=== PATIENT | female | born 1945 | race Caucasian/White ===

== ENCOUNTER → 2016-10-14 | Outpatient (CLI) | payer MEDICARE | LOC: WI 10:33 | PROVIDERS: ATTEND Nurse Practitioner Family | DX: Z12.31 Encounter for screening mammogram for malignant neoplasm of breast (principal) | CPT/HCPCS: 77063; G0202; 77067 ==

== ENCOUNTER → 2017-12-01 | Outpatient (CLI) | payer MEDICARE ==
--- NOTE | 2017-12-01 09:38 | WOMENS IMAGING REPORT ---
EXAM DESCRIPTION: BONE DENSITY HIP/SPINE COMPLETED DATE/TIME: 12/01/2017 9:11 am REASON FOR STUDY: POSTMENOPAUSAL DISORDER N95.9 UNSPECIFIED MENOPAUSAL AND PERIMENOPAUSAL DISORDER Z12.31 ENCNTR SCREEN MAMMOGRAM FOR MALIGNANT NEOPLASM OF ASHLEY COMPARISON: None. TECHNIQUE: Dual-Energy X-ray Absorptiometry (DEXA) of the AP Spine and Hip. LIMITATIONS: None. FINDINGS: LUMBAR SPINE: The bone mineral density (BMD) measured from L1-L4 in the AP projection correlates with a T-score of -1.5, which is osteopenia as defined by the World Health Organization. HIP: The bone mineral density (BMD) measured in the left hip correlates with a T-score of -1.6, which is o steopenia as defined by the World Health Organization. IMPRESSION: 1. LUMBAR SPINE: OSTEOPENIA. 2. HIP: OSTEOPENIA. COMMENT: The World Health Organization defines low BMD as follows: T-score: Normal: Greater than -1.0 Osteopenia: Between -1.0 and -2.5 Osteoporosis: Less than -2.5 without fractures Established osteoporosis: Less than -2.5 with fractures In general, you may wish to consider: Diagnosis Treatment Follow-up DEXA Normal BMD Prevention 2-3 years Osteopenia Prevention/Therapy 1-2 years Osteoporosis Therapy Yearly TECHNICAL DOCUMENTATION: JOB ID: [id number] [email or web address]- All Rights Reserved Reading location - IP/workstation name: [facility]
--- NOTE | 2017-12-01 09:47 | WOMENS IMAGING REPORT ---
EXAM DESCRIPTION: 3D SCREENING MAMMO BILAT COMPLETED DATE/TIME: 12/01/2017 9:11 am REASON FOR STUDY: SCREENING MAMMO N95.9 UNSPECIFIED MENOPAUSAL AND PERIMENOPAUSAL DISORDER Z12.31 ENCNTR SCREEN MAMMOGRAM FOR MALIGNANT NEOPLASM OF ASHLEY COMPARISON: 10/14/2016 and 08/13/2015. TECHNIQUE: Standard craniocaudal and mediolateral oblique views of each breast recorded using digita l acquisition and breast tomosynthesis. LIMITATIONS: None. FINDINGS: Findings present which are benign by mammographic criteria. No suspicious masses, calcifi cations or architectural distortion. Pertinent benign findings: Stable calcifications. Read with the assistance of CAD. .[facility] - R2 Cenova Version 1.3 .[facility] Imaging - R2 Cenova Version 1.3 .[facility] Imaging - R2 Cenova Version 2.4 .[facility] [place] R2 Cenova Version 2.4 .[facility] - R2 Glue Clamp Operator Version 9.2 Benign mammographic findings may include one or more of the following: Smooth masses, popcorn/rim/co arse calcifications, asymmetries, post-procedure changes, and lesions with long-standing stability. IMPRESSION: BENIGN MAMMOGRAPHIC FINDINGS. BIRADS 2 BREAST DENSITY: b. There are scattered areas of fibroglandular density. BIRAD: 2 BENIGN FINDING(S) RECOMMENDATION: RECOMMENDATION: ROUTINE SCREENING COMMENT: The patient has been notified of the results by letter per SA requirements. Additional no tification policies are in place for contacting patient with suspicious or incomplete findings. Quality ID #225: The [employer] recommends an annual screening mammogram for women aged 40 years or over. This facility utilizes a reminder system to ensure that all patients receive reminder letters, and/or direct phone calls for appointments. This includes reminders for routine scr eening mammograms, diagnostic mammograms, or other Breast Imaging Interventions when appropriate. Th is patient will be placed in the appropriate reminder system. The [employer] (ACR) has developed recommendations for screening MRI of the breast s in certain patient populations, to be used in conjunction with mammography. Breast MRI surveillanc e may be appropriate for women with more than 20% lifetime risk of developing breast cancer as deter mined by genetic testing, significant family history of the disease, or history of mantle radiation f or Hodgkins Disease. ACR Practice Guidelines 2008. DBT Technology DBT is a type of tomographic mammography. With conventional mammography, overlapping breast tissue ma y make lesions difficult to detect, even with good compression. DBT uses an x-ray tube that rotates a round the breast, taking images at different angles. These images are then combined to create thin sl ices of the breast that the radiologist can view as a 3D reconstruction. The Wintegra unit can perform full-field digital mammograms (2D imaging); or DBT (3D imaging); or both, in a combination mode that quickly performs both the mammogram and the tomosynthesis scan while the breast is still compressed. PQRS 6045F: Fluoroscopic imaging is not utilized for breast tomosynthesis. TECHNICAL DOCUMENTATION: FINDING NUMBER: (1) ASSESSMENT: (1) JOB ID: [id number] [employer]- All Rights Reserved Reading location - IP/workstation name: [facility][email or web address]
== END ==
LOC: WI 08:32
PROVIDERS: ATTEND Nurse Practitioner Family
DX: Z12.31 Encounter for screening mammogram for malignant neoplasm of breast (principal); N95.9 Unspecified menopausal and perimenopausal disorder; M85.88 Other specified disorders of bone density and structure, other site
CPT/HCPCS: 77063; 77067; 77080

== ENCOUNTER → 2019-04-27 | Outpatient (CLI) | payer MEDICARE ==
--- NOTE | 2019-04-27 16:25 | WOMENS IMAGING REPORT ---
EXAM DESCRIPTION: 3D SCREENING MAMMO BILAT COMPLETED DATE/TIME: 04/27/2019 11:17 am REASON FOR STUDY: Z12.31 ENCOUNTER FOR SCREENING MAMMOGRAM FOR MALIGNANT NEOPLASM OF BREAST Z12.31 ENCNTR SCREEN MAMMOGRAM FOR MALIGNANT NEOPLASM OF ASHLEY COMPARISON: Multiple since 2013 EXAM PARAMETERS: Standard craniocaudal and mediolateral oblique views of each breast recorded using digital acquisition and breast tomosynthesis. Read with the assistance of CAD. .[facility] [place] [employer] Spot [employer]der Version 9.2 LIMITATIONS: None. FINDINGS: Findings present which are benign by mammographic criteria. No suspicious masses, calcific ations or architectural distortion. Pertinent benign findings: Stable benign bilateral breast calcifications. Prior biopsy clip in the 6 o'clock position right breast Benign mammographic findings may include one or more of the following: Smooth masses, popcorn/rim/coa rse calcifications, asymmetries, post-procedure changes, and lesions with long-standing stability. IMPRESSION: BENIGN MAMMOGRAPHIC FINDINGS. BIRADS 2 BREAST DENSITY: b. There are scattered areas of fibroglandular density. BIRAD: ASSESSMENT: 2 BENIGN FINDING(S) RECOMMENDATION: ROUTINE SCREENING COMMENT: The patient has been notified of the results by letter per MQSA requirements. Additional no tification policies are in place for contacting patient with suspicious or incomplete findings. Quality ID #225: The [employer] recommends an annual screening mammogram for women aged 40 years or over. This facility utilizes a reminder system to ensure that all patients receive reminder letters, and/or direct phone calls for appointments. This includes reminders for routine scr eening mammograms, diagnostic mammograms, or other Breast Imaging Interventions when appropriate. Th is patient will be placed in the appropriate reminder system. TECHNICAL DOCUMENTATION: FINDING NUMBER: (1) ASSESSMENT: (1) JOB ID: [id number] [email or web address]- All Rights Reserved Reading location - IP/workstation name: [facility]
== END ==
LOC: WI 10:44
PROVIDERS: ATTEND Nurse Practitioner Family
DX: Z12.31 Encounter for screening mammogram for malignant neoplasm of breast (principal)
CPT/HCPCS: 77063; 77067

== ENCOUNTER 2019-07-17 21:15 | Emergency (ER) | payer MEDICARE ==
[2019-07-17] MEDS ORDERED: OXYCODONE-ACETAMINOPHEN 5-325 MG TABLET PO ONE ×2 (21:18→22:26)
--- NOTE | 2019-07-17 21:23 | ER Document Report ---
ED Medical Screen (RME) - General Chief Complaint: Wrist Injury Stated Complaint: FALL WRIST PAIN Time Seen by Provider: 07/17/19 21:16 Primary Care Provider: HELGA LEWIS FNP-C [Primary Care Provider] - Follow up as needed Mode of Arrival: Wheelchair Information source: Patient Notes: 33-year-old female presents to ED for complaint of fall at the congregational about 830 tonight. She does have a bruise to the right forehead and she does have a clotting disorder. She also has a deformity to the right wrist and hand. X- rays have been ordered I have a Percocet has been ordered as she states she cannot take a whole Percocet. CT of the head has been ordered for the head injury. Patient is alert and oriented respirations regular nonlabored very tearful. Iron may TRAVEL OUTSIDE OF THE [place] IN LAST 30 DAYS: No - Related Data Allergies/Adverse Reactions: aspirin [Aspirin] Allergy (Verified 04/24/14 21:32) Lactase [From Dairy Ease] Allergy (Verified 04/24/14 21:32) Penicillins Allergy (Verified 04/24/14 21:32) Sulfa (Sulfonamide Antibiotics) Allergy (Verified 04/24/14 21:32) Past Medical History - Past Medical History Cardiac Medical History: Reports: Hx Hypercholesterolemia, Hx Hypertension Malignancy Medical History: Reports: Hx Ovarian Cancer Musculoskeltal Medical History: Reports Hx Arthritis Past Surgical History: Reports: Hx Hysterectomy, Hx Orthopedic Surgery - Right total knee, right foot ORIF - Immunizations Hx Diphtheria, Pertussis, Tetanus Vaccination: Yes Doctor's Discharge - Discharge Referrals: HELGA LEWIS FNP-C [Primary Care Provider] - Follow up as needed
--- NOTE | 2019-07-17 22:13 | RADIOLOGY REPORT (SQ) ---
EXAM DESCRIPTION: CT HEAD WITHOUT INTRAVENOUS CONTRAST CLINICAL HISTORY: Head injury. History of clotting disorder. COMPARISON: None TECHNIQUE: CT of the head was performed without intravenous contrast .This exam was performed according to our departmental dose-optimization program, which includes automated exposure control, adjustment of the mA and/or KV according to the patient's size and/or use of iterative reconstruction technique. FINDINGS: Normal size ventricles. No suspicious intra-axial or extra-axial abnormalities. Bony calvarium is unremarkable. Right ethmoid sinus disease. Partial sclerosis left mastoid air cells. Sella turcica mildly enlarged. Pituitary gland minimally enlarged for age. There is also increased CSF in the pituitary fossa. IMPRESSION: 1. There are no acute intracranial findings. 2. Right ethmoid sinus disease. 3. Mildly enlarged sella turcica with mildly enlarged for age pituitary gland.
--- NOTE | 2019-07-17 22:19 | RADIOLOGY REPORT (SQ) ---
EXAM DESCRIPTION: XR HAND 3 OR MORE VIEWS COMPLETED DATE/TME: 07/17/2019 21:17 CLINICAL HISTORY: 73 years, Female, fall deformity COMPARISON: None. NUMBER OF VIEWS: 3 TECHNIQUE: 3 views right hand LIMITATIONS: None. FINDINGS: Osteopenia. Degenerative changes throughout the hand and wrist. Comminuted, displaced intra-articular fracture deformity of the distal radial metaphysis. Displaced ulnar styloid fracture as well. IMPRESSION: Fracture deformities of the wrist. Osteopenia. Degenerative change copyright 2010 [employer]- All Rights Reserved
--- NOTE | 2019-07-17 22:21 | RADIOLOGY REPORT (SQ) ---
EXAM DESCRIPTION: Right wrist, three views series CLINICAL HISTORY: 73 years Female, fall deformity COMPARISON: None. FINDINGS: Significant distal radial fracture with dorsal angulation and impaction. Articular surface appears to be involved. There is a separate displaced large ulnar styloid fracture. Incidental advanced degenerative changes in the first and second carpometacarpal joints. IMPRESSION: Significant fractures of the distal radius and ulna. Degenerative changes in the radial aspect of the wrist.
--- NOTE | 2019-07-17 23:36 | ER Document Report ---
ED General - General Chief Complaint: Fall Injury Stated Complaint: FALL WRIST PAIN Time Seen by Provider: 07/17/19 21:16 Primary Care Provider: HELGA LEWIS FNP-C [Primary Care Provider] - Follow up as needed Mode of Arrival: Wheelchair TRAVEL OUTSIDE OF THE [place] IN LAST 30 DAYS: No - HPI Notes: Patient is a 73-year-old female presents emergency department for evaluation after a fall. She lost her balance, tripped, suffered a mechanical fall on her outstretched right hand. She is right-hand dominant. She did strike the right side of her head as well. No loss of consciousness. No neck or back pain. She complains of pain in the right wrist region. Patient does have an unknown blood clotting disorder. Family states it is "chcf like von Willebrand's" and she has significant problems forming clots. - Related Data Allergies/Adverse Reactions: aspirin [Aspirin] Allergy (Verified 04/24/14 21:32) Lactase [From Dairy Ease] Allergy (Verified 04/24/14 21:32) Penicillins Allergy (Verified 04/24/14 21:32) Sulfa (Sulfonamide Antibiotics) Allergy (Verified 04/24/14 21:32) Home Medications: Amlodipine 2-1/2 mg daily, bupropion 75 mg daily, BuSpar 7/2 mg as needed, Caltrate 601 tablet daily, multivitamin daily, Celexa 20 mill grams daily, hydroxychloroquine 400 mg at bedtime, lisinopril 40 mg daily, 75 mg of melatonin at bedtime, ropinirole 0.5 mg twice daily, simvastatin 20 mg daily, trazodone 50 mg daily Past Medical History - General Information source: Patient, Relative - Social History Smoking Status: Never Smoker Chew tobacco use (# tins/day): No Frequency of alcohol use: None Drug Abuse: None Family History: Reviewed & Not Pertinent Patient has suicidal ideation: No Patient has homicidal ideation: No - Medical History Medical History: Other - Blood clotting disorder, followed at [facility] - Past Medical History Cardiac Medical History: Reports: Hx Hypercholesterolemia, Hx Hypertension Malignancy Medical History: Reports: Hx Ovarian Cancer Musculoskeletal Medical History: Reports Hx Arthritis - Rheumatoid Past Surgical History: Reports: Hx Hysterectomy, Hx Orthopedic Surgery - Right total knee, right foot ORIF - Immunizations Hx Diphtheria, Pertussis, Tetanus Vaccination: Yes Review of Systems - Review of Systems Constitutional: No symptoms reported EENT: No symptoms reported Cardiovascular: No symptoms reported Respiratory: No symptoms reported Gastrointestinal: No symptoms reported Genitourinary: No symptoms reported Musculoskeletal: See HPI Skin: No symptoms reported Neurological/Psychological: No symptoms reported Physical Exam - Vital signs Vitals: Temp Pulse Resp BP Pulse Ox 97.7 F 70 22 H 150/86 H 97 07/17/19 21:27 07/17/19 21:27 07/17/19 21:27 07/17/19 21:27 07/17/19 21:27 - Notes Notes: Is a very pleasant 73-year-old female who appears stated age, no acute distress. Head is normocephalic. She does have a 2 cm hematoma to the lateral aspect of the right orbit without any signs of skin break or active bleeding. Pupils are equal round, reactive to light. Heart regular rate and rhythm, lungs are clear to station bilaterally. Examination of the right upper extremity yields a mild amount of edema without significant deformity noted to the right wrist. She has no bony tenderness to palpation about the shoulder, humerus, elbow. She is markedly tender to palpation to the entire wrist. She does have some pain and difficulty with moving the thumb. Full range of motion of the fourth fingers. Sensation is intact, capillary refill is brisk, radial pulse 2+. Patient is awake, alert, oriented x3. Cranial nerves II - XII are grossly intact without focal neurological deficits. Strength is plus 5 out of 5 bilateral lower extremities, left upper extremity. Sensation is intact. Reflexes symmetrical. Course - Re-evaluation Re-evalutation: 07/18/19 00:45 Patient presents emergency department for evaluation. She has a significant fracture of her distal radius, as well as an ulnar styloid fracture. She does have some mild displacement, but I am more concerned about the possibility of causing increased bleeding in this patient with a known bleeding disorder. My suspicion is that this will need to be handled operatively, but it any rate, I think it is most appropriate for this to be done by her orthopedist. The patient and her daughter completely agree, and are amenable to not attempting reduction at this time. Patient had improvement here with some Percocet. She has a few Percocet left at home. I will write her another prescription. She was placed in a sugar tong splint and sling. I went back and evaluated her. She was neurovascularly intact following. She already has an orthopedist in [place] for her to follow with. She is to return to the ED with worsening. - Vital Signs Vital signs: Temp Pulse Resp BP Pulse Ox 97.7 F 70 22 H 150/86 H 97 07/17/19 21:27 07/17/19 21:27 07/17/19 21:27 07/17/19 21:27 07/17/19 21:27 Procedures - Immobilization Right Distal Arm Pre-Proc Neuro Vasc Exam: Normal Immobilizer type: Sugar tong Performed by: PCT Post-Proc Neuro Vasc Exam: Normal Alignment checked and good: Yes Discharge - Discharge Clinical Impression: Closed head injury, Traumatic ecchymosis of face Right radial fracture Qualifiers: Encounter type: initial encounter Radius location: distal Fracture type: closed Fracture morphology: unspecified fracture morphology Qualified Code(s): S52.501A - Unspecified fracture of the lower end of right radius, initial encounter for closed fracture Fracture of right ulnar styloid Qualifiers: Encounter type: initial encounter Fracture type: closed Condition: Stable Disposition: HOME, SELF-CARE Instructions: Fractured Radius and Ulna ([facility]), Temporary Splint ([facility]), Head Injury Precautions ([facility]) Additional Instructions: Take Percocet as needed for pain as discussed. Maintain splint to keep fracture immobilized. Follow-up with your orthopedist, contact his office tomorrow to set up an appointment. If you develop increased pain, swelling, numbness, or any other new or concerning symptoms, please return immediately to the emergency department for evaluation. Referrals: HELGA LEWIS, [employer]-C [Primary Care Provider] - Follow up as needed
[2019-07-18 01:05] VITALS: BP 136/77
== END 2019-07-18 01:05 | disposition home or self-care (01) ==
LOC: ER 21:15
PROC: 2W3CX1Z Immobilization of Right Lower Arm using Splint (ICD-10-PCS; principal; 2019-07-17)
DX: S52.501A Unspecified fracture of the lower end of right radius, initial encounter for closed fracture (principal); S09.90XA Unspecified injury of head, initial encounter; S00.83XA Contusion of other part of head, initial encounter; M25.531 Pain in right wrist; W19.XXXA Unspecified fall, initial encounter; Z79.899 Other long term (current) drug therapy; I10 Essential (primary) hypertension
CPT/HCPCS: 99284; 73130; 73110; 70450; 29125; A9270

== ENCOUNTER 2020-04-02 06:28 | Day surgery (SDC) | payer MEDICARE ==
[~2020-04-02 06:28] MED LIST: KETOROLAC TROMETHAMINE 0.45% 4 DROP/0.4 ML DROPERETTE OD PRN
[2020-04-02] MEDS ORDERED: FENTANYL CITRATE INJ/PF 100 MCG/2 ML AMPUL ONE (06:58)
[2020-04-02] MEDS ORDERED: MIDAZOLAM 2 MG/2 ML INJ ONE (06:58)
[2020-04-02] MEDS ORDERED: ONDANSETRON HCL INJ/PF 4 MG/2 ML SDV ONE (06:58)
[2020-04-02] MEDS: CYCLOPENTOLATE 0.2%/PHENYLEPHRINE 1% OPH SOLN 2 ML OD PRN ×3 (07:04→07:14)
[2020-04-02] MEDS: TETRACAINE HCL 0.5% OPH SOLN 4 ML OD PRN ×3 (07:04→07:40)
[2020-04-02] MEDS: TROPICAMIDE 1% OPH SOLN 15 ML OD PRN ×3 (07:04→07:14)
[2020-04-02] MEDS: BESIFLOXACIN HCL 0.6% OPH SUSP 5 ML BOTTLE OD PRN ×4 (07:04→07:58)
[2020-04-02] MEDS: EPINEPHRINE INJ/PF 1 MG/1 ML AMPULE ONE ×2 (07:47→07:49)
[2020-04-02] MEDS: CHONDR SU A NA/HYALUR INTRAOC KIT (SURGICARE) ONE ×2 (07:47→07:49)
[2020-04-02] MEDS: LIDOCAINE 1%/PHENYLEPHRINE 1.5% 0.8 ML SYRINGE ONE ×2 (07:47→07:49)
[2020-04-02] MEDS: PREDNISOLONE ACETATE 1% OPH SUSP 5 ML OD PRN ×2 (07:58)
[2020-04-02] MEDS: DORZOLAMIDE HCL 2%/TIMOLOL MALEAT 0.5% OPH SOLN 10 ML OD PRN ×2 (07:58)
--- NOTE | 2020-04-02 10:35 | Operative Report ---
Operative Report-[facility] Operative Report: DATE OF SURGERY: April 02, 2020 PREOPERATIVE DIAGNOSIS: NUCLEAR CATARACT, RIGHT EYE. POSTOPERATIVE DIAGNOSIS: NUCLEAR CATARACT, RIGHT EYE. PROCEDURE PERFORMED: PHACOEMULSIFICATION WITH POSTERIOR CHAMBER INTRAOCULAR LENS IMPLANT, RIGHT EYE. SURGEON: Claudio Mack DO MEDICATIONS AND ANESTHESIA: Versed: IV Versed Tetracaine drops: 1 to 2 drops given as needed COMPLICATION: None INDICATIONS FOR SURGERY: Medical necessity: Best corrected visual acuity worse than 20/40 secondary to cataracts with impairment of ability to carry out needs or desired activities, blurred vision, visual distortion, reduced contrast sensitivity and/or glare with association functional impairment and supporting documentation/testing, and cataracts causing symptomatic impairment of visual functions not corrected with tolerable changes in glasses or contact lenses interfering with activities of daily life. PROCEDURE: Consent: The risks, benefits and alternatives of this procedures was discussed with the patient. The patient read and signed the consent forms, was identified and was seated in the exam chair. IOL: MX 60 E 21.5 IOL Diopters: Phacoemulsification with posterior chamber intraocular lens implant: The face was prepped with 5% povidone iodine solution, and a few drops of 5% povidone iodine solution was instilled into the inferior fornix. A non-fenestrated drape was placed over the eye and the lids were parted with the speculum. A paracentesis was made with a 15 degree blade, and 1% lidocaine MPF followed by viscoelastic was injected into the anterior chamber. A 2.4 mm metal micro- keratome was used to create a temporal clear corneal incision. A circular anterior capsulorrhexis was created, followed by hydro-dissection and hydro- delineation. The phacoemulsification hand piece was inserted and the nucleus was removed with the Phaco chop technique. The irrigation-aspiration hand piece was used to remove the residual cortex, and vacuum the posterior capsule. The capsular bag was inflated and viscoelastic and the above-mentioned IOL was injected into the eye with care to insert both leaning and trailing haptics in the capsular bag. The irrigation/aspiration hand piece was reinserted to remove residual viscoelastic from the capsular bag and anterior chamber. The corneal incision was hydrated, and anterior chamber was inflated with sterile BSS via the paracentesis site, and found to be watertight. Postop medication: 1 drop of prednisolone into operative by followed by 1 drop of Cosopt into operative eye followed by 1 drop of Besivance intraoperative by other:
== END 2020-04-02 08:31 | disposition home or self-care (01) ==
LOC: SC 06:28
PROVIDERS: ATTEND Ophthalmology
DX: H25.11 Age-related nuclear cataract, right eye (principal); M06.9 Rheumatoid arthritis, unspecified; I10 Essential (primary) hypertension; Z79.899 Other long term (current) drug therapy; Z88.0 Allergy status to penicillin; Z88.2 Allergy status to sulfonamides; D64.9 Anemia, unspecified
CPT/HCPCS: 66984; V2632; J2250; J3490 ×3; A9270; J0171; J2405; 142; J3010

== ENCOUNTER 2020-04-16 07:56 | Day surgery (SDC) | payer MEDICARE ==
[~2020-04-16 07:56] MED LIST changes: +CHONDR SU A NA/HYALUR INTRAOC KIT (SURGICARE) ONE; +EPINEPHRINE INJ/PF 1 MG/1 ML AMPULE ONE; -KETOROLAC TROMETHAMINE 0.45% 4 DROP/0.4 ML DROPERETTE OD PRN; +KETOROLAC TROMETHAMINE 0.45% 4 DROP/0.4 ML DROPERETTE OS PRN; +LIDOCAINE 1%/PHENYLEPHRINE 1.5% 0.8 ML SYRINGE ONE
[2020-04-16] MEDS: TROPICAMIDE 1% OPH SOLN 15 ML OS PRN ×3 (08:41→09:01)
[2020-04-16] MEDS: CYCLOPENTOLATE 0.2%/PHENYLEPHRINE 1% OPH SOLN 2 ML OS PRN ×3 (08:41→09:01)
[2020-04-16] MEDS: BESIFLOXACIN HCL 0.6% OPH SUSP 5 ML BOTTLE OS PRN ×4 (08:41→09:25)
[2020-04-16] MEDS: TETRACAINE HCL 0.5% OPH SOLN 4 ML OS PRN ×3 (08:42→09:08)
[2020-04-16] MEDS ORDERED: FENTANYL CITRATE INJ/PF 100 MCG/2 ML AMPUL ONE (08:56)
[2020-04-16] MEDS ORDERED: MIDAZOLAM 2 MG/2 ML INJ ONE (08:56)
[2020-04-16] MEDS ORDERED: ONDANSETRON HCL INJ/PF 4 MG/2 ML SDV ONE (08:56)
[2020-04-16] MEDS: PREDNISOLONE ACETATE 1% OPH SUSP 5 ML OS PRN ×2 (09:25)
[2020-04-16] MEDS: DORZOLAMIDE HCL 2%/TIMOLOL MALEAT 0.5% OPH SOLN 10 ML OS PRN ×2 (09:25)
--- NOTE | 2020-04-16 10:03 | Operative Report ---
Operative Report-[facility] Operative Report: DATE OF SURGERY: April 16, 2020 PREOPERATIVE DIAGNOSIS: NUCLEAR CATARACT, LEFT EYE. POSTOPERATIVE DIAGNOSIS: NUCLEAR CATARACT, LEFT EYE. PROCEDURE PERFORMED: PHACOEMULSIFICATION WITH POSTERIOR CHAMBER INTRAOCULAR LENS IMPLANT, LEFT EYE. SURGEON: Claudio Mack DO MEDICATIONS AND ANESTHESIA: Versed: IV Versed Tetracaine drops: 1 to 2 drops given as needed COMPLICATION: None INDICATIONS FOR SURGERY: Medical necessity: Best corrected visual acuity worse than 20/40 secondary to cataracts with impairment of ability to carry out needs or desired activities, blurred vision, visual distortion, reduced contrast sensitivity and/or glare with association functional impairment and supporting documentation/testing, and cataracts causing symptomatic impairment of visual functions not corrected with tolerable changes in glasses or contact lenses interfering with activities of daily life. PROCEDURE: Consent: The risks, benefits and alternatives of this procedures was discussed with the patient. The patient read and signed the consent forms, was identified and was seated in the exam chair. IOL: MX 60 E 21.0 IOL Diopters: Phacoemulsification with posterior chamber intraocular lens implant: The face was prepped with 5% povidone iodine solution, and a few drops of 5% povidone iodine solution was instilled into the inferior fornix. A non-fenestrated drape was placed over the eye and the lids were parted with the speculum. A paracentesis was made with a 15 degree blade, and 1% lidocaine MPF followed by viscoelastic was injected into the anterior chamber. A 2.4 mm metal micro- keratome was used to create a temporal clear corneal incision. A circular anterior capsulorrhexis was created, followed by hydro-dissection and hydro- delineation. The phacoemulsification hand piece was inserted and the nucleus was removed with the Phaco chop technique. The irrigation-aspiration hand piece was used to remove the residual cortex, and vacuum the posterior capsule. The capsular bag was inflated and viscoelastic and the above-mentioned IOL was injected into the eye with care to insert both leaning and trailing haptics in the capsular bag. The irrigation/aspiration hand piece was reinserted to remove residual viscoelastic from the capsular bag and anterior chamber. The corneal incision was hydrated, and anterior chamber was inflated with sterile BSS via the paracentesis site, and found to be watertight. Postop medication:1 drop of prednisolone into operative by followed by 1 drop of Cosopt into operative eye followed by 1 drop of Besivance intraoperative by Other:
== END 2020-04-16 10:03 | disposition home or self-care (01) ==
LOC: SC 07:56
PROVIDERS: ATTEND Ophthalmology
DX: H25.12 Age-related nuclear cataract, left eye (principal); I10 Essential (primary) hypertension; M19.90 Unspecified osteoarthritis, unspecified site; D64.9 Anemia, unspecified; Z98.41 Cataract extraction status, right eye; Z79.899 Other long term (current) drug therapy; Z88.0 Allergy status to penicillin; Z88.2 Allergy status to sulfonamides; Z83.3 Family history of diabetes mellitus; Z80.9 Family history of malignant neoplasm, unspecified; Z85.43 Personal history of malignant neoplasm of ovary
CPT/HCPCS: 66984; 00142; V2632; J2250; J3490 ×3; A9270; J0171; J3010; J2405; 142

== ENCOUNTER → 2020-05-20 | Outpatient (CLI) | payer MEDICARE ==
--- NOTE | 2020-05-20 10:26 | WOMENS IMAGING REPORT ---
EXAM DESCRIPTION: 3D SCREENING MAMMO BILAT IMAGES COMPLETED DATE/TIME: 05/20/2020 9:45 am REASON FOR STUDY: Z12.31 ENCOUNTER FOR SCREENING MAMMOGRAM FOR MALIGNANT NEOPLASM OF BREAST Z12.31 ENCNTR SCREEN MAMMOGRAM FOR MALIGNANT NEOPLASM OF [place] COMPARISON: Multiple since 2013 EXAM PARAMETERS: Standard craniocaudal and mediolateral oblique views of each breast recorded using digital acquisition and breast tomosynthesis. Read with the assistance of CAD. .[facility] - [employer] Version 9.2 LIMITATIONS: None. FINDINGS: Findings present which are benign by mammographic criteria. No suspicious masses, calcific ations or architectural distortion. Pertinent benign findings: Old biopsy clip right breast 6 o'clock position. Benign calcifications bi laterally. Benign mammographic findings may include one or more of the following: Smooth masses, popcorn/rim/coa rse calcifications, asymmetries, post-procedure changes, and lesions with long-standing stability. IMPRESSION: BENIGN MAMMOGRAPHIC FINDINGS. BIRADS 2 BREAST DENSITY: b. There are scattered areas of fibroglandular density. BIRAD: ASSESSMENT: 2 BENIGN FINDING(S) RECOMMENDATION: ROUTINE SCREENING Please continue yearly bilateral screening mammography/tomosynthesis in May 2021 COMMENT: The patient has been notified of the results by letter per [place] requirements. Additional no tification policies are in place for contacting patient with suspicious or incomplete findings. Quality ID #[id number]: The [employer] recommends an annual screening mammogram for women aged 40 years or over. This facility utilizes a reminder system to ensure that all patients receive reminder letters, and/or direct phone calls for appointments. This includes reminders for routine scr eening mammograms, diagnostic mammograms, or other Breast Imaging Interventions when appropriate. Th is patient will be placed in the appropriate reminder system. TECHNICAL DOCUMENTATION: FINDING NUMBER: (1) ASSESSMENT: (1) JOB ID: [id number] 2010 [employer]- All Rights Reserved Reading location - IP/workstation name: [email or web address]
== END ==
LOC: WI 09:18
PROVIDERS: ATTEND Nurse Practitioner Family
DX: Z12.31 Encounter for screening mammogram for malignant neoplasm of breast (principal)
CPT/HCPCS: 77063; 77067